=== PATIENT | male | born 1980 | race Caucasian/White ===

== ENCOUNTER 2020-08-02 23:12 | Emergency (ER) | payer OTHER ==
[2020-08-03 01:13] LABS: BASOPHIL 0.5 % (0-2); EOSINOPHIL 2.9 % (0-5); HCT 49.2 % (42.0-52.0); HGB 16.4 g/dl (13.2-18.0); LYMPHOCYTE 20.7 % (15-48); MCH 30.4 pg (25.0-31.0); MCHC 33.3 g/dL (32.0-36.0); MCV 91.3 fL (78.0-100.0); MONOCYTE 10.3 % (0-12); MPV 9.2 fL (6.0-9.5); NEUTROPHIL 65.2 % (41-80); NRBC 0; PLT 336 K/uL (150-400); RBC 5.39 M/uL (4.70-6.00); RDW 12.5 % (11.5-14.0); WBC 11.1 K/uL (4.0-10.5)
[2020-08-03 01:32] LABS: ALBUMIN 4.3 g/dL (3.4-5.0); BILIRUBIN - TOTAL 0.6 mg/dL (0.2-1.0); BUN/CREAT RATIO (CALC) 13.2 RATIO; CREATININE 0.91 mg/dL (0.67-1.17); GLOBULIN (CALCULATION) 3.7 g/dL; POTASSIUM 4.3 mmol/L (3.5-5.1)
== END 2020-08-03 06:49 | disposition other institution (70) ==
LOC: FER 23:12
PROVIDERS: Emergency Medicine Emergency Medical Services
DX: T18.128A Food in esophagus causing other injury, initial encounter (principal); X58.XXXA Exposure to other specified factors, initial encounter; Z20.822 Contact with and (suspected) exposure to COVID-19
CPT/HCPCS: 36415; 71046; 80053; 85025; J1610; J1885; J2405; J7030; U0002